=== PATIENT | female | born 1990 | race Caucasian/White ===

== ENCOUNTER → 2016-10-27 | Outpatient (REF) | payer OTHER ==
[~2016-10-27] MED LIST: MOTR200T40 PO; PERC5TAB6 PO; PREN1TAB11 PO
== END ==
LOC: M LAB REF 13:18
PROVIDERS: ATTEND Advanced Practice Midwife
DX: Z34.83 Encounter for supervision of other normal pregnancy, third trimester (principal)

== ENCOUNTER → 2016-11-02 | Outpatient (CLI) | payer OTHER ==
[~2016-11-02] MED LIST changes: -MOTR200T40 PO; +MOTR200T44 PO
--- NOTE | 2016-11-03 07:32 | REP ---
Clinical: Evaluate for vasa previa . Comparison: 08/11/2016 . Findings: Examination demonstrates a single live intrauterine in cephalic presentation. motion is identified by technologist. Placenta is noted posteriorly and grade one without evidence for placenta previa or abruption. Amniotic fluid volume is normal. Cervix measures 3.7 cm in length and appears closed. No evidence for nuchal cord. No evidence for vasa previa. Gestational age by LMP 39 weeks 3 days with MANOJ 11/06/2016 . Gestational age by first ultrasound 37 weeks 2 days with MANOJ 11/21/2016 . FHR equals 136 beats per minute. Amniotic fluid index equals 14.5 cm (7.4 - 24.2) Umbilical cord SD ratio equals 0.63. No gross abnormalities are identified. Impression: Single live advanced gestation in cephalic presentation. No evidence for vasa previa. Signed by Nito Marshall MD 11/03/2016 07:24 A
== END ==
LOC: M SMT 13:54
PROVIDERS: ATTEND Advanced Practice Midwife
DX: Z34.83 Encounter for supervision of other normal pregnancy, third trimester (principal)

== ENCOUNTER 2016-11-26 22:45 | Inpatient (IN) | payer OTHER ==
[~2016-11-26] VITALS: Ht 162.6 cm; Wt 84.0 kg
[2016-11-26] MEDS ORDERED: LACTATED RINGER'S 1000 ML IV STA (23:12)
[2016-11-26] MEDS ORDERED: PROMETHAZINE INJ 25 MG/ML VIAL (J2550) IV PRN (23:15)
[2016-11-26] MEDS ORDERED: BUTORPHANOL 2 MG/ML INJ (J0595) IV PRN (23:15)
[2016-11-26 23:37] VITALS: BP 114/63
[2016-11-26 23:37] LABS: MEAN CORPUSCULAR HEMOGLOBIN 30.6 pg (27.0-33.0); MEAN CORPUSCULAR HGB CONC 34.3 g/dl (32.0-36.5); MEAN CORPUSCULAR VOLUME 89.2 fl (80.0-96.0); RED CELL DISTRIBUTION WIDTH 14.1 % (11.5-14.5); WHITE BLOOD COUNT 13.3 K/mm3 (4.0-10.0)
[2016-11-27] VITALS (42 sets, daily range): BP systolic 102–144; BP diastolic 55–104
[2016-11-27] MEDS: LR 1,000 ML IV SCH ×3 (08:05→20:45)
[2016-11-27] MEDS ORDERED: OXYTOCIN 30 UNITS IN 0.9% NaCl 500ML IV BAG (J2590) As Ordered ONE (08:33)
--- NOTE | 2016-11-27 08:59 | HPE ---
DATE OF ADMISSION: 11/26/2016 A 26-year-old 2, para 1-0-0-1, estimated date of delivery 11/21/2016, here at 40 weeks 5 days with reports of contractions over the last few days with increasing intensity and frequency, reports bloody show. Denies loss of fluid. Fetus is active. Last normal menstrual period 01/31/2016 for estimated date of delivery (MANOJ) 11/06/2016, sonogram at 9 weeks confirmed date of 11/21/2016. Anatomy scan within normal limits. Low lying placenta resolved. Transvaginal ultrasound confirmed no vasa previa. Repeat scheduled 11/29/2016. OBSTETRICAL HISTORY: 2015: Primary at 41 weeks for nonreassuring status. Viable female, 6 pounds 3 ounces. No known drug allergies. MEDICAL-SURGICAL: Previous ; otherwise noncontributory. FAMILY HISTORY: Thyroid disorder. SOCIAL HISTORY: . Father of the baby present and supportive. Denies tobacco, alcohol or drugs. OBJECTIVE: Prepregnancy weight 160, total weight gain 25 pounds. O+, antibody negative, rubella immune, VDRL, hepatitis B, hepatitis C, HIV, gonorrhea, Chlamydia all negative. Declined genetic screening. 1-hour glucose 70. Group B strep negative. Vital signs are stable. No apparent distress. Heart rate is regular. Breathing with contractions. heart 135, moderate variability with accelerations and variable decelerations. Uterine contractions 3-5 minutes apart and mild. Cervix is 2+ centimeters, 90% effaced, -3, light bloody show, bulging bag of water. ASSESSMENT: Multipara at term, previous , category two tracing, early labor. PLAN: Admit per consult Dr. Vazquez. The patient has been thoroughly consented about repeat versus trial of labor after (TOLAC), including risks and benefits. The patient and partner desire TOLAC. Observe for labor progress overnight, consider augmentation in the morning.
[2016-11-27] MEDS ORDERED: OXYTOCIN DRIP 30 UNITS in APPROPRIATE DILUENT 1 EA IV SCH ×2 (09:00→20:45)
[2016-11-27] MEDS ORDERED: FENTANYL 2MCG/ML ROPIVACAINE 0.2% NACL 250 ML CADD As Ordered ONE (09:57)
[2016-11-27] MEDS ORDERED: ONDANSETRON 4MG/2ML VIAL (J2405) IV PRN ×2 (11:00→20:45)
[2016-11-27] MEDS ORDERED: REFRIGERATOR IV KEYS XX PRN (11:00)
[2016-11-27] MEDS ORDERED: FENTANYL/ROPIVACAINE/NACL CADD 250 ML EPIDURAL SCH (11:00)
[2016-11-27] MEDS ORDERED: EPIDURAL/PCA KEYS XX PRN (11:00)
[2016-11-27] MEDS ORDERED: NALOXONE INJ 0.4 MG/1 ML VIAL (J2310) IV PRN (11:00)
[2016-11-27] MEDS ORDERED: diphenhydrAMINE INJ 50MG/ML VIAL (J1200) IV PRN (11:00)
[2016-11-27] MEDS ORDERED: ePHEDrine SULFATE 25 MG/5 ML(5MG/ML) SYRINGE IV PRN (11:00)
[2016-11-27] MEDS ORDERED: LACTATED RINGER'S 1000 ML IV PRN (11:00)
[2016-11-27] MEDS ORDERED: EPIDURAL COMMENT XX SCH (11:00)
[2016-11-27] MEDS ORDERED: ACETAMINOPHEN 500 MG TAB As Ordered ONE (19:09)
[2016-11-27 20:24] LABS: CORD GAS ABE A -12.4; CORD GAS HCO3 A 18.8 MEQ/L; CORD GAS O2 SAT A 20.4 %; CORD GAS PCO2 A 64.5 mmHg; CORD GAS PH A 7.082 UNITS; CORD GAS PO2 A 15.5 mmHg; CORD GAS SBC A 13.5 MEQ/L; CORD GAS TCO2 A 20.8 MEQ/L
[2016-11-27 20:26] LABS: CORD GAS ABE V -11.4; CORD GAS HCO3 V 16.4 MEQ/L; CORD GAS O2 SAT V 69.1 %; CORD GAS PCO2 V 43.7 mmHg; CORD GAS PH V 7.193 UNITS; CORD GAS PO2 V 34.8 mmHg; CORD GAS SBC V 15.2 MEQ/L; CORD GAS TCO2 V 17.8 MEQ/L
[2016-11-27] MEDS ORDERED: IBUPROFEN 800 MG TAB PO PRN (20:45)
[2016-11-27] MEDS ORDERED: RHOGAM 300 MCG (1500 IU) INJ (J2790) IM SCH (20:45)
[2016-11-27] MEDS ORDERED: MEASLES,MUMPS,RUBELLA VACCINE INJ (MMR-II) (90707) SC SCH (20:45)
[2016-11-27] MEDS ORDERED: DOCUSATE SODIUM 100 MG CAP PO PRN (20:45)
[2016-11-27] MEDS ORDERED: ACETAMINOPHEN 500 MG TAB PO PRN (20:45)
[2016-11-27] MEDS ORDERED: PROMETHAZINE 25 MG TAB PO PRN (20:45)
[2016-11-27] MEDS ORDERED: DIBUCAINE 1% OINTMENT 30GM TOP PRN (20:45)
[2016-11-27] MEDS: AMPICILLIN SOD/SULBACTAM SOD 3 GM in D5W MINI-BAG PLUS 100 ML IV SCH (21:00)
[2016-11-28] MEDS: AMPICILLIN SOD/SULBACTAM SOD 3 GM in D5W MINI-BAG PLUS 100 ML IV SCH ×4 (03:00→22:08)
[2016-11-28] MEDS: LR 1,000 ML IV SCH ×3 (04:45→20:45)
[2016-11-28 05:25] VITALS: BP 106/62
[2016-11-28 07:34] LABS: MEAN CORPUSCULAR HEMOGLOBIN 31.4 pg (27.0-33.0); MEAN CORPUSCULAR HGB CONC 34.8 g/dl (32.0-36.5); MEAN CORPUSCULAR VOLUME 90.3 fl (80.0-96.0); RED CELL DISTRIBUTION WIDTH 14.3 % (11.5-14.5); WHITE BLOOD COUNT 16.5 K/mm3 (4.0-10.0)
[2016-11-28] MEDS: PRENATAL VITAMIN TAB PO SCH (09:29)
[2016-11-28 19:03] VITALS: BP 115/62
[2016-11-29] MEDS: AMPICILLIN SOD/SULBACTAM SOD 3 GM in D5W MINI-BAG PLUS 100 ML IV SCH (03:00)
[2016-11-29] MEDS: LR 1,000 ML IV SCH (04:45)
[2016-11-29 06:02] VITALS: BP 113/81
[2016-11-29] MEDS ORDERED: ACET50TA PO (08:58)
[2016-11-29] MEDS ORDERED: IBUP-1114 PO (08:59)
[2016-11-29] MEDS: PRENATAL VITAMIN TAB PO SCH (09:00)
== END 2016-11-29 10:30 | disposition home or self-care (01) | DRG 560 ==
LOC: M LDO 22:45 → M LDI 23:12 → M OBS 11-27 22:51
PROVIDERS: ADMIT Advanced Practice Midwife; ATTEND Obstetrics & Gynecology
PROC: 10E0XZZ Delivery of Products of Conception, External Approach (ICD-10-PCS; principal; 2016-11-27)
PROC: 0KQM0ZZ Repair Perineum Muscle, Open Approach (ICD-10-PCS; 2016-11-27)
PROC: 10907ZC Drainage of Amniotic Fluid, Therapeutic from Products of Conception, Via Natural or Artificial Opening (ICD-10-PCS; 2016-11-27)
PROC: 0HQ9XZZ Repair Perineum Skin, External Approach (ICD-10-PCS; 2016-11-27)
DX: O34.211 Maternal care for low transverse scar from previous cesarean delivery (principal); O41.1230 Chorioamnionitis, third trimester, not applicable or unspecified; O48.0 Post-term pregnancy; Z3A.40 40 weeks gestation of pregnancy; O69.81X0 Labor and delivery complicated by cord around neck, without compression, not applicable or unspecified; O70.1 Second degree perineal laceration during delivery; O70.0 First degree perineal laceration during delivery; O76 Abnormality in fetal heart rate and rhythm complicating labor and delivery; O77.0 Labor and delivery complicated by meconium in amniotic fluid; Z37.0 Single live birth

== ENCOUNTER → 2018-01-16 | Outpatient (REF) | payer OTHER | LOC: M LAB REF 12:27 | DX: N39.0 Urinary tract infection, site not specified (principal) | CPT/HCPCS: 87186 ==

== ENCOUNTER → 2018-09-26 | Outpatient (CLI) | payer OTHER ==
[2018-09-26 18:06] LABS: BASO % 0.2 % (0.0-1.0); EOS # 0.1 10^3/uL (0.0-0.50); EOS % 0.6 % (0.0-3.0); HEMATOCRIT 37.9 % (36.0-47.0); HEMOGLOBIN 12.8 g/dl (12.0-15.5); IMMATURE GRANULOCYTE % 0.7 % (0-3.0); LYMPH # 1.3 10^3/uL (1.5-6.5); LYMPH % 13.6 % (24.0-44.0); MEAN CORPUSCULAR HEMOGLOBIN 30.8 pg (27.0-33.0); MEAN CORPUSCULAR HGB CONC 33.8 g/dl (32.0-36.5); MEAN CORPUSCULAR VOLUME 91.1 fl (80.0-96.0); MONO # 0.5 10^3/uL (0.0-0.8); MONO % 4.8 % (0.0-5.0); NEUTROPHILS # 7.8 10^3/uL (1.8-7.7); NEUTROPHILS % 80.1 % (36.0-66.0); PLATELET COUNT, AUTOMATED 243 10^3/uL (150-450); RED BLOOD COUNT 4.16 10^6/uL (4.00-5.40); RED CELL DISTRIBUTION WIDTH 13.6 % (11.5-14.5); WHITE BLOOD COUNT 9.7 10^3/uL (4.0-10.0)
[2018-09-27 09:48] LABS: HBsAg Prenatal NEGATIVE (NEGATIVE); HIV 1&2 SCREEN CENTAUR NEGATIVE (NEGATIVE); RUBELLA IgG QUALITATIVE IMMUNE (IMMUNE)
[2018-09-27 09:48] LABS: HEPATITIS C VIRUS ABY INDEX 0.1 INDEX (<0.8)
== END ==
LOC: M SMT 14:29
DX: Z36.89 Encounter for other specified antenatal screening (principal)
CPT/HCPCS: 86762

== ENCOUNTER → 2018-09-29 | Outpatient (REF) | payer OTHER ==
[~2018-09-29] MED LIST changes: +IBUP-1114 PO; +MAPA500T17 PO; +PERC5TAB12 PO; -PERC5TAB6 PO
[2018-09-29 15:50] LABS: CHLAMYDIA DNA AMPLIFICATION NEGATIVE (NEGATIVE); GC DNA AMPLIFICATION NEGATIVE (NEGATIVE)
== END ==
LOC: M LAB REF 12:58
PROVIDERS: ATTEND Advanced Practice Midwife
DX: O34.211 Maternal care for low transverse scar from previous cesarean delivery (principal)

== ENCOUNTER → 2018-11-13 | Outpatient (CLI) | payer OTHER ==
[~2018-11-13] MED LIST changes: -MAPA500T17 PO; +MAPA500T2 PO
--- NOTE | 2018-11-13 15:58 | REP ---
Clinical: Anatomical evaluation. Comparison: 10/19/2018 . Findings: Examination demonstrates a single live intrauterine in breech presentation. motion is identified by technologist. Placenta is noted posterior, low-lying and grade I approximately 2.2 cm from the closed internal os. Amniotic fluid volume is normal. Cervix measures 4.5 cm in length and appears closed. No evidence for nuchal cord. Gestational age by LMP 21 weeks 4 days with MANOJ 03/22/2019 . Gestational age by current measurements 21 weeks 0 days with MANOJ 03/26/2019 . Estimated weight 454 grams ( 56 percentile). Anatomical assessment demonstrates normal structures including cranium, choroid plexus, cavum, cerebellum/posterior fossa, facial features, lungs, four-chamber heart/ventricular outflow tracts, diaphragm, stomach, cord insertion/three-vessel cord, kidneys/bladder, spine, and extremities. Impression: 1. Single live intrauterine in breech presentation demonstrating appropriate interval growth. 2. Low-lying placenta approximately 2.2 cm from the closed internal os. 3. Anatomical assessment is complete and normal. No gross abnormalities are identified. Electronically Signed by Nito Marshall MD 11/13/2018 03:49 P
== END ==
LOC: M SMT 13:41
PROVIDERS: ATTEND Advanced Practice Midwife
DX: Z34.82 Encounter for supervision of other normal pregnancy, second trimester (principal); Z3A.22 22 weeks gestation of pregnancy

== ENCOUNTER → 2018-12-21 | Outpatient (CLI) | payer OTHER ==
[2018-12-21 13:42] LABS: HEMOGLOBIN 11.8 g/dl (12.0-15.5); MEAN CORPUSCULAR HEMOGLOBIN 31.7 pg (27.0-33.0); MEAN CORPUSCULAR HGB CONC 33.7 g/dl (32.0-36.5); MEAN CORPUSCULAR VOLUME 94.1 fl (80.0-96.0); PLATELET COUNT, AUTOMATED 210 10^3/uL (150-450); RED BLOOD COUNT 3.72 10^6/uL (4.00-5.40); WHITE BLOOD COUNT 7.1 10^3/uL (4.0-10.0)
== END ==
LOC: M SMT 10:03
PROVIDERS: ATTEND Obstetrics & Gynecology
DX: Z34.82 Encounter for supervision of other normal pregnancy, second trimester (principal); Z3A.00 Weeks of gestation of pregnancy not specified

== ENCOUNTER → 2019-02-23 | Outpatient (REF) | payer OTHER | LOC: M LAB REF 17:29 | PROVIDERS: ATTEND Obstetrics & Gynecology | DX: Z34.83 Encounter for supervision of other normal pregnancy, third trimester (principal); Z3A.00 Weeks of gestation of pregnancy not specified ==

== ENCOUNTER → 2019-07-23 | Outpatient (REF) | payer BC, OTHER ==
[~2019-07-23] MED LIST changes: +ACET-683 PO; +ACET650S3 PO; +COLA100C5 PO; +IBUP200C25 PO
== END ==
LOC: M LAB REF 17:32
PROVIDERS: ATTEND Advanced Practice Midwife
DX: Z12.4 Encounter for screening for malignant neoplasm of cervix (principal)

== ENCOUNTER → 2023-10-11 | Outpatient (CLI) | payer BC, OTHER | LOC: M LAB 12:04 | PROVIDERS: ATTEND Advanced Practice Midwife | DX: O03.9 Complete or unspecified spontaneous abortion without complication (principal) ==

== ENCOUNTER → 2023-10-19 | Outpatient (CLI) | payer MEDICAID, SELFPAY | LOC: M PLALAB 10:44 | PROVIDERS: ATTEND Advanced Practice Midwife | DX: O03.9 Complete or unspecified spontaneous abortion without complication (principal) ==

== ENCOUNTER → 2024-10-12 | Outpatient (CLI) | payer SELFPAY ==
[~2024-10-12] MED LIST changes: +ACET-841 PO; +IBUP1TAB7 PO
[2024-10-12 14:46] LABS: HEMATOCRIT 38.4 % (36.0-47.0); HEMOGLOBIN 12.8 g/dl (12.0-15.5); MEAN CORPUSCULAR HEMOGLOBIN 29.6 pg (27.0-33.0); MEAN CORPUSCULAR HGB CONC 33.3 g/dl (32.0-36.5); MEAN CORPUSCULAR VOLUME 88.7 fl (80.0-96.0); PLATELET COUNT, AUTOMATED 244 10^3/uL (150-450); RED BLOOD COUNT 4.33 10^6/uL (4.00-5.40); WHITE BLOOD COUNT 5.8 10^3/uL (4.0-10.0)
[2024-10-12 15:09] LABS: GC DNA AMPLIFICATION NEGATIVE (NEGATIVE)
[2024-10-12 15:22] LABS: HIV 1&2 SCREEN NEGATIVE (NEGATIVE)
[2024-10-12 15:29] LABS: HEPATITIS C VIRUS ABY INDEX 0.03 INDEX (<0.8)
== END ==
LOC: M PLALAB 10:05
PROVIDERS: ATTEND Obstetrics & Gynecology
DX: Z34.80 Encounter for supervision of other normal pregnancy, unspecified trimester (principal)

== ENCOUNTER 2024-11-14 00:26 | Outpatient (CLI) | payer SELFPAY ==
[~2024-11-14] VITALS: Ht 162.6 cm; Wt 68.0 kg
[2024-11-14] VITALS (9 sets, daily range): BP systolic 85–100; BP diastolic 50–68; O2SAT 96
[2024-11-14] MEDS ORDERED: ACETAMINOPHEN 500 MG TAB PO PRN (00:40)
[2024-11-14] MEDS ORDERED: ACETAMINOPHEN 325 MG TAB PO PRN (00:40)
[2024-11-14] MEDS ORDERED: IBUPROFEN 600MG TAB PO PRN (00:40)
[2024-11-14] MEDS ORDERED: IBUPROFEN 800 MG TAB PO PRN (00:40)
[2024-11-14] MEDS: METHYLERGONOVINE MALEATE 0.2MG/ML 1ML VIAL IM STA (00:41)
[2024-11-14] MEDS: TRANEXAMIC ACID INJection 1,000 MG in NS 100 ML IV ONE (00:51)
[2024-11-14 01:36] LABS: HEMOGLOBIN 11.8 g/dl (12.0-15.5); MEAN CORPUSCULAR HEMOGLOBIN 30.6 pg (27.0-33.0); MEAN CORPUSCULAR HGB CONC 34.7 g/dl (32.0-36.5); MEAN CORPUSCULAR VOLUME 88.1 fl (80.0-96.0); PLATELET COUNT, AUTOMATED 189 10^3/uL (150-450); RED BLOOD COUNT 3.86 10^6/uL (4.00-5.40); WHITE BLOOD COUNT 9.9 10^3/uL (4.0-10.0)
== END 2024-11-14 07:54 | disposition home or self-care (01) ==
LOC: M LDO 00:26
PROVIDERS: ATTEND Advanced Practice Midwife
DX: O02.1 Missed abortion (principal); Z3A.14 14 weeks gestation of pregnancy; Z87.59 Personal history of other complications of pregnancy, childbirth and the puerperium
CPT/HCPCS: 85027; 86850; 86900; 86901; 88305; 96365; 96366; 96372; J2210

== ENCOUNTER → 2025-09-24 | Outpatient (REF) | payer SELFPAY ==
[2025-09-26 13:52] LABS: HPV APTIMA Not Detected (Not Detected)
== END ==
LOC: M SFHCWAGY 13:08
PROVIDERS: ATTEND Nurse Practitioner Family
DX: Z01.419 Encounter for gynecological examination (general) (routine) without abnormal findings (principal)
CPT/HCPCS: 87624; G0123